=== PATIENT | male | born 1975 | race Caucasian/White ===

== ENCOUNTER 2016-07-13 08:32 | Emergency (ER) | payer MEDICARE ==
[~2016-07-13] VITALS: Ht 182.9 cm; Wt 90.7 kg
[2016-07-13 09:33] LABS: HEMOGLOBIN 12.6 gm/dl (14.0-17.5); RED BLOOD COUNT 4.29 M/UL (4.20-5.50)
[2016-07-13 09:50] LABS: BUN/CREATININE RATIO 18 (0-10)
== END 2016-07-13 11:04 | disposition home or self-care (01) ==
LOC: ER1 08:32
PROVIDERS: Physician Assistant
DX: J34.0 Abscess, furuncle and carbuncle of nose (principal); F17.200 Nicotine dependence, unspecified, uncomplicated
CPT/HCPCS: 36415; 80053; 85025; 87040; 96365; 99283; J0875; J7070

== ENCOUNTER 2020-10-23 19:27 | Inpatient (IN) | payer MEDICARE ==
[~2020-10-23] VITALS: Ht 182.9 cm; Wt 102.1 kg
[2020-10-23 20:27] LABS: HEMOGLOBIN 12.1 gm/dl (14.0-17.5); RED BLOOD COUNT 4.15 M/UL (4.20-5.50); WHITE BLOOD COUNT 11.1 K/UL (4.5-11.0)
[2020-10-23] MEDS ORDERED: XANAX 0.25 MG0.25 MG PO (23:39)
[2020-10-23] MEDS ORDERED: ANACIN 400-321 EACH PO (23:41)
[2020-10-24 05:22] LABS: HEMOGLOBIN 11.7 gm/dl (14.0-17.5); RED BLOOD COUNT 4.03 M/UL (4.20-5.50); WHITE BLOOD COUNT 8.5 K/UL (4.5-11.0)
[2020-10-24 05:45] LABS: BUN/CREATININE RATIO 10 (0-10)
--- NOTE | 2020-10-25 07:43 | NUR ---
0715- PATIENT LEFT FLOOR FOR OR AT THIS TIME.
--- NOTE | 2020-10-25 11:43 | NUR ---
0920- PATIENT BACK FROM OR AT THIS TIME. VITAL SIGNS STABLE. NO DISTRESS NOTED.
--- NOTE | 2020-10-25 14:36 | NUR ---
NOTIFIED OF PATIENT COMPLAINTS WITH HEADACHE. NEW ORDER NOTED
[2020-10-26 05:51] LABS: HEMOGLOBIN 12.9 gm/dl (14.0-17.5); RED BLOOD COUNT 4.39 M/UL (4.20-5.50)
[2020-10-26 05:54] LABS: WHITE BLOOD COUNT 13.7 K/UL (4.5-11.0)
[2020-10-26 06:11] LABS: BUN/CREATININE RATIO 12 (0-10)
[2020-10-27 05:53] LABS: HEMOGLOBIN 12.8 gm/dl (14.0-17.5); RED BLOOD COUNT 4.32 M/UL (4.20-5.50)
[2020-10-27 05:55] LABS: WHITE BLOOD COUNT 7.6 K/UL (4.5-11.0)
[2020-10-27 06:11] LABS: BUN/CREATININE RATIO 10 (0-10)
[2020-10-27 06:12] LABS: HBSAG SCREEN Negative (Negative); HEP A AB, IGM Negative (Negative); HEP B CORE AB, IGM Negative (Negative); HEP C VIRUS AB >11.0 (0.0-0.9)
[2020-10-28 04:37] LABS: BUN/CREATININE RATIO 14 (0-10)
[2020-10-28] MEDS ORDERED: IBUPROFEN600 MG PO (13:27)
[2020-10-28] MEDS ORDERED: BACTRIM DS TAB1 EACH PO (13:27)
[2020-10-29 05:09] LABS: BUN/CREATININE RATIO 14 (0-10)
[2020-10-29 09:29] LABS: HEMOGLOBIN 13.7 gm/dl (14.0-17.5); RED BLOOD COUNT 4.69 M/UL (4.20-5.50); WHITE BLOOD COUNT 8.2 K/UL (4.5-11.0)
[2020-10-29] MEDS ORDERED: HYDROCODON-ACE1 EAC2 PO (14:51)
== END 2020-10-29 17:13 | disposition home or self-care (01) | DRG 580 ==
LOC: ER1 19:27 → CDU 21:50 → M/S 21:50
PROVIDERS: Internal Medicine; Physician Assistant; Surgery; ADMIT Internal Medicine
PROC: 0J9G0ZZ Drainage of Right Lower Arm Subcutaneous Tissue and Fascia, Open Approach (ICD-10-PCS; principal; 2020-10-25 08:00)
DX: L03.113 Cellulitis of right upper limb (principal); N17.9 Acute kidney failure, unspecified; L02.413 Cutaneous abscess of right upper limb; F41.9 Anxiety disorder, unspecified; Z20.822 Contact with and (suspected) exposure to COVID-19; F17.210 Nicotine dependence, cigarettes, uncomplicated; R74.01 Elevation of levels of liver transaminase levels; G47.33 Obstructive sleep apnea (adult) (pediatric); F19.10 Other psychoactive substance abuse, uncomplicated; J44.9 Chronic obstructive pulmonary disease, unspecified; B19.20 Unspecified viral hepatitis C without hepatic coma; Z98.1 Arthrodesis status
CPT/HCPCS: 36415; 73090; 73201; 80048; 80053; 80074; 80202; 83605; 83735; 85025; 85652; 86140; 87040; 87070; 87205; 99284; J1100; J1885; J2001; J2270; J2405; J2543; J2704; J3010; J3370; J7030; J7070; Q9967; U0002